=== PATIENT | male | born 2000 | race Caucasian/White ===

== ENCOUNTER 2020-11-06 21:19 | Emergency (ER) | payer BC, OTHER ==
[2020-11-06] MEDS ORDERED: SODIUM CHLORIDE 0.9% 500 ML 500 ML IV STA (22:16)
--- NOTE | 2020-11-06 22:20 | ED ---
General Adult HPI - General Chief complaint: Syncope Stated complaint: Chest Pain/Syncope Time Seen by Provider: 11/06/20 22:05 Source: patient Mode of arrival: ambulatory Limitations: no limitations - History of Present Illness Initial comments: this patient is a 20-year-old manwho states that he was sitting at a desk approximately 90 minutes ago when he experienced a sharp pain to the anterior left chest and then shortly after felt he was becoming lightheaded, his vision went dark and he passed out. He woke up on the floor short time later. He does not believe he had an injury and going to the floor. He states thatnow he feels tingly throughout the extremities but otherwise he is feeling well. Patient denies currently chest pain, dyspnea, diaphoresis, nausea or vomiting. No palpitations noted. Onset/Timin -: minutes(s) Location: chest Quality: sharp Consistency: now resolved Improves with: none Worsens with: none Associated Symptoms: chest pain, syncope Treatments Prior to Arrival: none - Related Data Home Medications Medication Instructions Recorded Confirmed Multivitamins, Thera [Multivitamin 1 tab PO DAILY 11/06/20 11/06/20 (formulary)] Allergies Allergy/AdvReac Type Severity Reaction Status Date / Time No Known Allergies Allergy Verified 11/06/20 21:45 Review of Systems ROS Statement: Those systems with pertinent positive or pertinent negative responses have been documented in the HPI. ROS Other: All systems not noted in ROS Statement are negative. Constitutional: Denies: fever, chills, weakness Eyes: Denies: vision change Respiratory: Denies: cough, dyspnea, wheezes, hemoptysis Cardiovascular: Reports: as per HPI, chest pain, syncope. Denies: palpitations, orthopnea, edema Gastrointestinal: Denies: abdominal pain, nausea, vomiting, diarrhea, constipation Genitourinary: Denies: dysuria, hematuria Musculoskeletal: Denies: back pain Skin: Denies: rash Neurological: Reports: paresthesias. Denies: headache, weakness, numbness, confusion, vertigo Past Medical History Past Medical History: No Reported History History of Any Multi-Drug Resistant Organisms: None Reported Past Surgical History: Appendectomy Past Psychological History: No Psychological Hx Reported Smoking Status: Never smoker Past Alcohol Use History: None Reported Past Drug Use History: Marijuana General Exam Limitations: no limitations General appearance: alert, in no apparent distress Head exam: Present: atraumatic, normocephalic Eye exam: Present: normal appearance. Absent: scleral icterus, conjunctival injection ENT exam: Present: normal oropharynx Neck exam: Present: normal inspection Respiratory exam: Present: normal lung sounds bilaterally. Absent: respiratory distress, wheezes, rales, rhonchi, stridor, chest wall tenderness, accessory muscle use, decreased breath sounds, prolonged expiratory Cardiovascular Exam: Present: regular rate, normal rhythm, normal heart sounds. Absent: systolic murmur, diastolic murmur, rubs, gallop GI/Abdominal exam: Present: soft. Absent: distended, tenderness, guarding, rebound, rigid, mass, pulsatile mass, hernia Extremities exam: Present: normal inspection, normal capillary refill. Absent: pedal edema, calf tenderness Back exam: Present: normal inspection. Absent: CVA tenderness (R), CVA tenderness (L) Neurological exam: Present: alert, oriented X3. Absent: motor sensory deficit Skin exam: Present: warm, dry, intact, normal color. Absent: rash Course Vital Signs 11/06/20 11/06/20 21:41 23:00 Temperature 98.6 F Pulse Rate 66 62 Respiratory 20 16 Rate Blood Pressure 123/74 125/69 O2 Sat by Pulse 99 98 Oximetry EKG Findings - EKG Results: EKG: interpreted by HOMA, sinus rhythm (Rate 68 bpm), normal axis, normal QRS, normal ST/T Medical Decision Making - Lab Data Result diagrams: 11/06/20 22:32 11/06/20 22:32 Lab Results 11/06/20 11/06/20 11/06/20 Range/Units 22:32 22:32 22:32 WBC 10.4 (3.8-10.6) k/uL RBC 5.20 (4.30-5.90) m/uL Hgb 16.9 (13.0-17.5) gm/dL Hct 47.4 (39.0-53.0) % MCV 91.1 (80.0-100.0) fL MCH 32.4 (25.0-35.0) pg MCHC 35.6 (31.0-37.0) g/dL RDW 11.8 (11.5-15.5) % Plt Count 222 (150-450) k/uL MPV 6.7 Neutrophils % 74 % Lymphocytes % 15 % Monocytes % 5 % Eosinophils % 5 % Basophils % 1 % Neutrophils # 7.7 (1.3-7.7) k/uL Lymphocytes # 1.5 (1.0-4.8) k/uL Monocytes # 0.5 (0-1.0) k/uL Eosinophils # 0.5 (0-0.7) k/uL Basophils # 0.1 (0-0.2) k/uL PT 11.0 (9.0-12.0) sec INR 1.1 (<1.2) APTT 24.1 (22.0-30.0) sec D-Dimer 0.41 (<0.60) mg/L FEU Sodium (137-145) mmol/L Potassium (3.5-5.1) mmol/L Chloride (98-107) mmol/L Carbon Dioxide (22-30) mmol/L Anion Gap mmol/L BUN (9-20) mg/dL Creatinine (0.66-1.25) mg/dL Est GFR (CKD-EPI)AfAm (>60 ml/min/1.73 sqM) Est GFR (CKD-EPI)NonAf (>60 ml/min/1.73 sqM) Glucose (74-99) mg/dL Calcium (8.4-10.2) mg/dL Total Bilirubin (0.2-1.3) mg/dL AST (17-59) U/L ALT (4-49) U/L Alkaline Phosphatase (38-126) U/L Troponin I (0.000-0.034) ng/mL Total Protein (6.3-8.2) g/dL Albumin (3.5-5.0) g/dL Urine Color Yellow Urine Appearance Clear (Clear) Urine pH 6.0 (5.0-8.0) Ur Specific [place] 1.023 (1.001-1.035) Urine Protein Negative (Negative) Urine Glucose (UA) Negative (Negative) Urine Ketones Trace H (Negative) Urine Blood Negative (Negative) Urine Nitrite Negative (Negative) Urine Bilirubin Negative (Negative) Urine Urobilinogen <2.0 (<2.0) mg/dL Ur Leukocyte Esterase Negative (Negative) 11/06/20 11/06/20 Range/Units 22:32 22:32 WBC (3.8-10.6) k/uL RBC (4.30-5.90) m/uL Hgb (13.0-17.5) gm/dL Hct (39.0-53.0) % MCV (80.0-100.0) fL MCH (25.0-35.0) pg MCHC (31.0-37.0) g/dL RDW (11.5-15.5) % Plt Count (150-450) k/uL MPV Neutrophils % % Lymphocytes % % Monocytes % % Eosinophils % % Basophils % % Neutrophils # (1.3-7.7) k/uL Lymphocytes # (1.0-4.8) k/uL Monocytes # (0-1.0) k/uL Eosinophils # (0-0.7) k/uL Basophils # (0-0.2) k/uL PT (9.0-12.0) sec INR (<1.2) APTT (22.0-30.0) sec D-Dimer (<0.60) mg/L FEU Sodium 136 L (137-145) mmol/L Potassium 4.1 (3.5-5.1) mmol/L Chloride 104 (98-107) mmol/L Carbon Dioxide 23 (22-30) mmol/L Anion Gap 9 mmol/L BUN 20 (9-20) mg/dL Creatinine 0.81 (0.66-1.25) mg/dL Est GFR (CKD-EPI)AfAm >90 (>60 ml/min/1.73 sqM) Est GFR (CKD-EPI)NonAf >90 (>60 ml/min/1.73 sqM) Glucose 95 (74-99) mg/dL Calcium 9.7 (8.4-10.2) mg/dL Total Bilirubin 0.6 (0.2-1.3) mg/dL AST 29 (17-59) U/L ALT 15 (4-49) U/L Alkaline Phosphatase 57 (38-126) U/L Troponin I <0.012 (0.000-0.034) ng/mL Total Protein 8.0 (6.3-8.2) g/dL Albumin 4.9 (3.5-5.0) g/dL Urine Color Urine Appearance (Clear) Urine pH (5.0-8.0) Ur Specific [place] (1.001-1.035) Urine Protein (Negative) Urine Glucose (UA) (Negative) Urine Ketones (Negative) Urine Blood (Negative) Urine Nitrite (Negative) Urine Bilirubin (Negative) Urine Urobilinogen (<2.0) mg/dL Ur Leukocyte Esterase (Negative) Disposition Clinical Impression: Vasovagal syncope Disposition: HOME SELF-CARE Condition: Good Instructions (If sedation given, give patient instructions): Syncope (ED) Is patient prescribed a controlled substance at d/c from ED?: No Referrals: Otilia Latham MD [Primary Care Provider] - 1-2 days
[2020-11-06 22:49] LABS: Basophils # (A) 0.1 k/uL (0-0.2); Basophils % (A) 1 %; Eosinophils # (A) 0.5 k/uL (0-0.7); Eosinophils % (A) 5 %; HCT 47.4 % (39.0-53.0); HGB 16.9 gm/dL (13.0-17.5); Lymphocytes # (A) 1.5 k/uL (1.0-4.8); Lymphocytes % (A) 15 %; MCH 32.4 pg (25.0-35.0); MCHC 35.6 g/dL (31.0-37.0); MCV 91.1 fL (80.0-100.0); Mean Platelet Volume 6.7; Monocytes # (A) 0.5 k/uL (0-1.0); Monocytes % (A) 5 %; Neutrophils # (A) 7.7 k/uL (1.3-7.7); Neutrophils % (A) 74 %; Platelet Count 222 k/uL (150-450); RDW 11.8 % (11.5-15.5); WBC 10.4 k/uL (3.8-10.6)
--- NOTE | 2020-11-06 22:52 | XR ---
EXAMINATION TYPE: XR chest 2V DATE OF EXAM: 11/06/2020 COMPARISON: NONE HISTORY: Chest pain TECHNIQUE: 2 views FINDINGS: Heart and mediastinum are normal. Lungs are clear. Diaphragm is normal. There are chest cale ds. IMPRESSION: Normal chest. No change.
[2020-11-06 23:01] LABS: ALT 15 U/L (4-49); AST 29 U/L (17-59); African American GFR (CKD) >90 (>60 ml/min/1.73 sqM); Albumin 4.9 g/dL (3.5-5.0); Alkaline Phosphatase 57 U/L (38-126); Anion Gap 9 mmol/L; Blood Urea Nitrogen 20 mg/dL (9-20); Calcium 9.7 mg/dL (8.4-10.2); Carbon Dioxide 23 mmol/L (22-30); Chloride 104 mmol/L (98-107); Glucose 95 mg/dL (74-99); Non-African American GFR(CKD) >90 (>60 ml/min/1.73 sqM); Potassium 4.1 mmol/L (3.5-5.1); Sodium 136 mmol/L (137-145); Total Bilirubin 0.6 mg/dL (0.2-1.3)
[2020-11-06 23:05] LABS: D-Dimer 0.41 mg/L FEU (<0.60); INR 1.1 (<1.2); Partial Thromboplastin Time 24.1 sec (22.0-30.0)
[2020-11-06 23:08] VITALS: RESP 16
[2020-11-06 23:15] LABS: Appearance,Urine Clear (Clear); Bilirubin,Urine Negative (Negative); Blood,Urine Negative (Negative); Color,Urine Yellow; Glucose,Urine (UA) Negative (Negative); Ketones,Urine Trace (Negative); Leukocyte Esterase,Urine Negative (Negative); Nitrite,Urine Negative (Negative); Protein,Urine Negative (Negative); Specific Gravity,Urine 1.023 (1.001-1.035); Urobilinogen,Urine <2.0 mg/dL (<2.0)
[2020-11-06 23:48] VITALS: BP 111/66; PULSE 64; TEMP 97.7
== END 2020-11-07 00:03 | disposition home or self-care (01) ==
LOC: EC 21:19
DX: R55 Syncope and collapse (principal)
CPT/HCPCS: 36415; 71046; 80053; 81003; 84484; 85025; 85379; 85610; 85730; 93005; 96360; 99284